=== PATIENT | male | born 1990 | race Caucasian/White ===

== ENCOUNTER 2017-08-04 23:31 | Observation (INO) | payer OTHER ==
[2017-08-05 00:18] LABS: Absolute Lymphocytes (CBC) 2.1 K/uL (0.7-4.9); Absolute Monocytes 0.9 K/uL (0.1-1.3); Absolute Neutrophil 9.8 K/uL (1.8-8.0); Basophils % 0.7 % (0-1.3); Eosinophils % 1.3 % (0-4.4); Hematocrit 42.5 % (39.6-49.0); Lymphocytes % 15.8 % (15.3-44.8); MCH 28.6 pg (27.0-35.0); MCV 85.2 fL (80-100); MPV 8.4 fL (7.6-11.3); Monocytes % 7.2 % (3.3-12.3); RBC Red Blood Cell Count 4.99 M/uL (4.33-5.43)
[2017-08-05 00:32] LABS: Glomerular Filtration Rate > 60 mL/min (>60)
[2017-08-05] MEDS ORDERED: MORPHINE 4 MG/ML SYR ONE ×2 (00:32→03:32)
[2017-08-05] MEDS ORDERED: ONDANSETRON 4 MG/2 ML VIAL ONE (00:32)
[2017-08-05] MEDS ORDERED: NA CHLORIDE 0.9% 1,000 ML ONE (00:32)
[2017-08-05 00:33] LABS: Potassium 3.8 mEq/L (3.6-5.0)
[2017-08-05 00:39] LABS: Albumin 4.8 g/dL (3.2-5.5); Bilirubin Direct 0.1 mg/dL (0-0.2); Bilirubin Total 0.6 mg/dL (0.3-1.2); Protein, Total 8.1 g/dL (6.0-8.3)
[2017-08-05 02:10] LABS: Urine Bacteria <20 /HPF (NONE SEEN); Urine Culture Reflex Order NOT NEEDED; Urine RBC <5 /HPF (NONE SEEN)
[2017-08-05 02:23] LABS: Urine Blood TRACE (NEG); Urine Glucose NEGATIVE (NEG); Urine Protein 1+ (NEG); Urine Specific Gravity 1.015 (1.005-1.030)
--- NOTE | 2017-08-05 03:27 | EDPHYS ---
Physician Documentation [facility] Name: Curtis Urrutia Age: 26 yrs Sex: Male : 1990 Arrival Date: 08/04/2017 Time: 23:35 Bed 26 Private MD: Matty Brewer H ED Physician Oscar Almeida HPI: 08/05 03:05 This 26 yrs old Male presents to ER via Ambulatory with complaints of pm1 Abdominal Pain, Left Flank Pain. 03:05 The patient presents with abdominal pain in the left upper quadrant, left flank pain. pm1 Onset: The symptoms/episode began/occurred yesterday, at 13:00. The symptoms do not radiate. Associated signs and symptoms: Pertinent negatives: nausea, vomiting, and diarrhea, chest pain, dysuria, fever, shortness of breath, testicular pain. The symptoms are described as constant, sharp. Modifying factors: The symptoms are alleviated by nothing, the symptoms are aggravated by nothing. Severity of pain: in the emergency department the pain is actually worse. The patient has not experienced similar symptoms in the past. The patient has not recently seen a physician, Flaco Cosme MD is his director field services . Historical: - Allergies: 08/04 23:55 Sulfa (Sulfonamide Antibiotics); ao - Home Meds: 23:55 Lisinopril Oral [Active]; clonidine HCl Oral [Active]; ao 08/05 03:20 amlodipine oral [Active]; ao - PMHx: 08/04 23:55 Kidney disease; ao 23:57 Hypertension; ao - PSHx: 23:55 None; ao - Immunization history:: Adult Immunizations up to date. - Social history:: Smoking status: Patient/guardian denies using tobacco, Patient/guardian denies using alcohol, street drugs. ROS: 08/05 03:05 Constitutional: Negative for fever, chills, and weight loss, Eyes: Negative for injury, pm1 pain, redness, and discharge, ENT: Negative for injury, pain, and discharge, Neck: Negative for injury, pain, and swelling, Cardiovascular: Negative for chest pain, palpitations, and edema, Respiratory: Negative for shortness of breath, cough, wheezing, and pleuritic chest pain. : Negative for injury, bleeding, discharge, and swelling, MS/Extremity: Negative for injury and deformity, Skin: Negative for injury, rash, and discoloration, Neuro: Negative for headache, weakness, numbness, tingling, and seizure. Abdomen/GI: Positive for abdominal pain, of the left upper quadrant, Negative for nausea, vomiting, and diarrhea. Back: Positive for flank pain, on the left. Exam: 03:05 Constitutional: This is a well developed, well nourished patient who is awake, alert, pm1 and in no acute distress. Head/Face: Normocephalic, atraumatic. Eyes: Pupils equal round and reactive to light, extra-ocular motions intact. Lids and lashes normal. Conjunctiva and sclera are non-icteric and not injected. Cornea within normal limits. Periorbital areas with no swelling, redness, or edema. ENT: Nares patent. No nasal discharge, no septal abnormalities noted. Tympanic membranes are normal and external auditory canals are clear. Oropharynx with no redness, swelling, or masses, exudates, or evidence of obstruction, uvula midline. Mucous membranes moist. Neck: Trachea midline, no thyromegaly or masses palpated, and no cervical lymphadenopathy. Supple, full range of motion without nuchal rigidity, or vertebral point tenderness. No Meningismus. Chest/axilla: Normal chest wall appearance and motion. Nontender with no deformity. No lesions are appreciated. Cardiovascular: Regular rate and rhythm with a normal S1 and S2. No gallops, murmurs, or rubs. Normal PMI, no JVD. No pulse deficits. Respiratory: Lungs have equal breath sounds bilaterally, clear to auscultation and percussion. No rales, rhonchi or wheezes noted. No increased work of breathing, no retractions or nasal flaring. 03:05 Abdomen/GI: Inspection: abdomen appears normal, Bowel sounds: normal, Palpation: soft, in the left upper quadrant. Vital Signs: 08/04 23:55 BP 150 / 104; Pulse 76; Resp 16; Temp 98.9(O); Pulse Ox 99% on R/A; Weight 90.72 kg; ao Height 5 ft. 9 in. (175.26 cm); Pain 10/10; 08/05 00:30 BP 144 / 94; Pulse 66; Resp 16; Pulse Ox 99% on R/A; lk1 01:00 BP 155 / 107; Pulse 83; Resp 16; Pulse Ox 99% on R/A; lk1 02:00 BP 160 / 92; Pulse 89; Resp 15; Pulse Ox 99% on R/A; lk1 03:05 BP 175 / 106; Pulse 78; Resp 16; Temp 98.9(O); Pulse Ox 98% on R/A; Pain 8/10; ao 04:10 BP 167 / 109; Pulse 86; Resp 16; Pulse Ox 100% on R/A; Pain 0/10; lk1 05:10 BP 159 / 105; Pulse 74; Resp 16; Pulse Ox 98% on R/A; ao 08/04 23:55 Body Mass Index 29.53 (90.72 kg, 175.26 cm) ao MDM: 08/04 23:58 Patient medically screened. pm1 08/05 03:15 Physician consultation: Brake Lining Maker Marguerite was contacted at 03:10, regarding pm1 patient's condition, Recommends observation for serial H\T\H, able to tolerate PO fluids, and pain management. Patient does not require transfer to another facility. Dr. Cosme or himself will call the patient tomorrow see how he is doing. 03:20 Data reviewed: vital signs. Data interpreted: Pulse oximetry: on room air is 99 %. pm1 Interpretation: normal. Counseling: I had a detailed discussion with the patient and/or guardian regarding: the historical points, exam findings, and any diagnostic results supporting the discharge/admit diagnosis, lab results, radiology results, the need for further work-up and treatment in the hospital. 03:24 Physician consultation: Jessica Medellin MD was called at 03:24, was contacted at 03:24, pm1 regarding admission, patient's condition, and will see patient. 08/04 23:59 Order name: Creatinine for Radiology pm1 08/04 23:59 Order name: Basic Metabolic Panel; Complete Time: 01:01 pm1 08/04 23:59 Order name: CBC with Diff; Complete Time: 01:01 pm1 08/04 23:59 Order name: Hepatic Function; Complete Time: 01:01 pm1 08/04 23:59 Order name: Lipase; Complete Time: 01:01 pm1 08/04 23:59 Order name: Urine Microscopic Only; Complete Time: 02:48 pm1 08/04 23:59 Order name: IV Saline Lock; Complete Time: 00:36 pm1 08/04 23:59 Order name: Creatinine (Radiology Only); Complete Time: 01:01 EDRI 08/05 00:06 Order name: CT Abd/Pelvis - W/Contrast: IV contrast only pm1 08/05 02:08 Order name: Urine Dipstick--Ancillary (enter results); Complete Time: 02:48 em1 08/04 23:59 Order name: Labs collected and sent; Complete Time: 00:36 pm1 08/04 23:59 Order name: Urine Dipstick-Ancillary (obtain specimen); Complete Time: 02:02 pm1 Administered Medications: 00:23 Drug: Zofran 4 mg Route: IVP; Site: right antecubital; kr2 00:44 Follow up: Response: No adverse reaction; Nausea is decreased kr2 00:23 Drug: NS 0.9% 1000 ml Route: IV; Rate: 1000 ml; Site: right antecubital; kr2 05:14 Follow up: IV Status: Completed infusion ao 00:24 Drug: morphine 4 mg Route: IVP; Site: right antecubital; kr2 00:44 Follow up: Response: No adverse reaction; Pain is decreased kr2 03:19 Drug: morphine 4 mg Route: IVP; Site: right antecubital; ao 05:14 Follow up: Response: No adverse reaction ao Disposition: 06:35 Co-signature as Attending Physician, Oscar Almeida MD. rn Disposition: 08/05/17 03:26 Hospitalization ordered by Jessica Medellin for Observation. Preliminary diagnosis is Polycystic kidney, unspecified - intracystic hemorrhage of left kidney. - Bed requested for Telemetry/MedSurg (observation). - Status is Observation. ao - Condition is Stable. - Problem is new. - Symptoms have improved. UTI on Admission? No Signatures: Dispatcher [employer] EDRI Barbara Hoyos RN RN kl Nieto, Roman, MD MD rn Ortiz, Alex, RN RN ao Marinas, Patrick, AWS SOLUTION ARCHITECT AWS SOLUTION ARCHITECT pm1 Nataliya Maria RN RN kr2
--- NOTE | 2017-08-05 03:27 | ER ---
Nurse's Notes [facility] Name: Curtis Urrutia Age: 26 yrs Sex: Male : 1990 Arrival Date: 08/04/2017 Time: 23:35 Bed 26 Private MD: Matty Brewer H Diagnosis: Polycystic kidney, unspecified-intracystic hemorrhage of left kidney Presentation: 08/04 23:50 Presenting complaint: Patient states: "I have severe pain in my left side of my abdomen ao that started about 0100." Patient denies vomiting, fever. Transition of care: patient was not received from another setting of care. Onset of symptoms was August 04, 2017 at 01:00. Care prior to arrival: None. 23:50 Method Of Arrival: Ambulatory ao 23:50 Acuity: PARTH 3 ao Triage Assessment: 08/05 00:36 General: Appears in no apparent distress. uncomfortable, well groomed, well developed, kr2 well nourished, Behavior is calm, cooperative, appropriate for age. Pain: Complains of pain in left upper quadrant Pain does not radiate. Pain currently is 7 out of 10 on a pain scale. Quality of pain is described as crampy, sharp, stabbing, Pain began suddenly, Is continuous, Alleviated by nothing. Historical: - Allergies: 08/04 23:55 Sulfa (Sulfonamide Antibiotics); ao - Home Meds: 23:55 Lisinopril Oral [Active]; clonidine HCl Oral [Active]; ao 08/05 03:20 amlodipine oral [Active]; ao - PMHx: 08/04 23:55 Kidney disease; ao 23:57 Hypertension; ao - PSHx: 23:55 None; ao - Immunization history:: Adult Immunizations up to date. - Social history:: Smoking status: Patient/guardian denies using tobacco, Patient/guardian denies using alcohol, street drugs. Screenin/04 00:36 Abuse screen: Denies threats or abuse. Denies injuries from another. Nutritional kr2 screening: No deficits noted. Tuberculosis screening: No symptoms or risk factors identified. Fall Risk IV access (20 points). Assessment: 00:38 GI: Bowel sounds present X 4 quads. Abd is soft X 4 quads Abdomen is tender to kr2 palpation in left upper quadrant. 03:05 General: Appears in no apparent distress. comfortable, Behavior is calm, cooperative, ao appropriate for age. Pain: Complains of pain in abdomen and left upper quadrant Pain does not radiate. Pain currently is 6 out of 10 on a pain scale. 03:05 Neuro: Level of Consciousness is awake, alert, obeys commands, Oriented to person, ao place, time, situation, Appropriate for age Moves all extremities. Full function Speech is normal, Facial symmetry appears normal. Cardiovascular: Heart tones S1 S2 Capillary refill < 3 seconds Patient's skin is warm and dry. Respiratory: Airway is patent Respiratory effort is even, unlabored, Respiratory pattern is regular, symmetrical, Breath sounds are clear bilaterally. GI: Abdomen is non-distended, Bowel sounds present X 4 quads. Reports nausea. : No signs and/or symptoms were reported regarding the genitourinary system. EENT: No signs and/or symptoms were reported regarding the EENT system. Derm: No signs and/or symptoms reported regarding the dermatologic system. Musculoskeletal: No signs and/or symptoms reported regarding the musculoskeletal system. 04:10 Reassessment: Patient appears in no apparent distress at this time. Patient and/or lk1 family updated on plan of care and expected duration. Pain level reassessed. Patient is alert, oriented x 3, equal unlabored respirations, skin warm/dry/pink. Patient to be hospitalize. Patient is aware of admission and agree with the POC. Waiting on room assignment. 05:08 Reassessment: Report called to JOHN Vance. Patient to be taken to his room. [facility] [place] Vital Signs: 08/04 23:55 BP 150 / 104; Pulse 76; Resp 16; Temp 98.9(O); Pulse Ox 99% on R/A; Weight 90.72 kg; ao Height 5 ft. 9 in. (175.26 cm); Pain 02/10; 08/05 00:30 BP 144 / 94; Pulse 66; Resp 16; Pulse Ox 99% on R/A; lk1 01:00 BP 155 / 107; Pulse 83; Resp 16; Pulse Ox 99% on R/A; lk1 02:00 BP 160 / 92; Pulse 89; Resp 15; Pulse Ox 99% on R/A; lk1 03:05 BP 175 / 106; Pulse 78; Resp 16; Temp 98.9(O); Pulse Ox 98% on R/A; Pain 8/10; ao 04:10 BP 167 / 109; Pulse 86; Resp 16; Pulse Ox 100% on R/A; Pain 0/10; lk1 05:10 BP 159 / 105; Pulse 74; Resp 16; Pulse Ox 98% on R/A; ao 08/04 23:55 Body Mass Index 29.53 (90.72 kg, 175.26 cm) ao ED Course: 08/04 23:35 Patient arrived in ED. es 23:35 Matty Brewer DO is Private Physician. es 23:52 Triage completed. ao 23:57 Arm band placed on right wrist. Patient placed in an exam room, on a stretcher, on ao pulse oximetry, Patient notified of wait time. 23:58 Nikolai Chance NP is PHCP. pm1 23:58 Oscar Almeida MD is Attending Physician. pm1 08/05 00:10 Nataliya Maria RN is Primary Nurse. kr2 00:10 Inserted saline lock: 20 gauge in right antecubital area, using aseptic technique. kr2 Blood collected. 00:38 Patient has correct armband on for positive identification. Bed in low position. Call kr2 light in reach. Side rails up X2. Pulse ox on. NIBP on. Door closed. Warm blanket given. Head of bed elevated. 01:[address] via wheelchair. eh 01:20 CT completed. Patient tolerated procedure well. Patient moved back from CT. eh 01:20 CT Abd/Pelvis - W/Contrast: IV contrast only In Process Unspecified. EDMS 03:10 Report received from JOHN Bhatt. ao 03:25 Jessica Medellin MD is Hospitalizing Provider. pm1 05:06 No provider procedures requiring assistance completed. Patient admitted, IV remains in lk1 place. Administered Medications: 00:23 Drug: Zofran 4 mg Route: IVP; Site: right antecubital; kr2 00:44 Follow up: Response: No adverse reaction; Nausea is decreased kr2 00:23 Drug: NS 0.9% 1000 ml Route: IV; Rate: 1000 ml; Site: right antecubital; kr2 05:14 Follow up: IV Status: Completed infusion ao 00:24 Drug: morphine 4 mg Route: IVP; Site: right antecubital; kr2 00:44 Follow up: Response: No adverse reaction; Pain is decreased kr2 03:19 Drug: morphine 4 mg Route: IVP; Site: right antecubital; ao 05:14 Follow up: Response: No adverse reaction ao Outcome: 03:26 Decision to Hospitalize by Provider. pm1 05:06 Admitted to Med/surg accompanied by nurse, room 211, with chart, Report called to diane Vance RN 05:06 Condition: stable 05:06 Instructed on the need for admit. 05:13 Patient left the ED. ao Signatures: Dispatcher [employer] EDAmira Nayak Ervin eh Kluge, Leah, RN RN lk1 Rei Villegas RN RN Nikolai Donahue, ANNY CONTROL SYSTEMS ENGINEER pm1 Nataliya Maria RN RN kr2
--- NOTE | 2017-08-05 04:30 | P.HP ---
Certification for Inpatient Patient admitted to: Observation With expected LOS: <2 Midnights Practitioner: I am a practitioner with admitting privileges, knowledge of patient current condition, hospital course, and medical plan of care. Services: Services provided to patient in accordance with Admission requirements found in Title 42 Section 412.3 of the Code of Federal Regulations Patient History Date of Service: 08/05/17 Reason for admission: hemorrhagic cyst History of Present Illness: Mr Urrutia is a 26 years old male with history of HTN, and polycystic kidney disease, who start around 1300 yesterday with severe left flank and left lower quadrant. The pain was constant and progressively getting worse. He denied any fever, chills or diaphoresis episode. Work up in ER shows leukocytosis 13K, CT abdomen and pelvis remarkable for kidney stones, obstructive, on the upper pole of the left kidney there is a possible hemorrhagic cyst vs a mass. Hgb is 13 mg /dl. Allergies Sulfa (Sulfonamide Antibiotics) Allergy (Verified 08/05/17 04:28) Itching/Hives/Rash - Past Medical/Surgical History -: polycystic kidney disease -: HTN Past Surgical History: Reviewed- Non-Contributory - Family History Family History: Reviewed- Non-Contributory - Social History Smoking Status: Never smoker Alcohol use: No CD- Drugs: No Caffeine use: Yes Place of Residence: Home Review of Systems 10-point ROS is otherwise unremarkable Physical Examination - Physical Exam General: Alert, In no apparent distress HEENT: Atraumatic, PERRLA, Mucous membr. moist/pink, EOMI, Sclerae nonicteric Neck: Supple, 2+ carotid pulse no bruit, No LAD, Without JVD or thyroid abnormality Respiratory: Clear to auscultation bilaterally, Normal air movement Cardiovascular: Regular rate/rhythm, Normal S1 S2 Gastrointestinal: Normal bowel sounds, Tenderness (tender to palpation on LLQ and left flank) Musculoskeletal: No tenderness Integumentary: No rashes Neurological: Normal speech, Normal strength at 5/5 x4 extr, Normal tone, Normal affect Lymphatics: No axilla or inguinal lymphadenopathy - Studies Laboratory Data (last 24 hrs) 08/04/17 23:59: WBC 13.0 H, Hgb 14.3, Hct 42.5, Plt Count 282 08/04/17 23:59: Sodium 139, Potassium 3.8, BUN 22 H, Creatinine 1.18, Glucose 134 H, Total Bilirubin 0.6, AST 20, ALT 28, Alkaline Phosphatase 55, Lipase 26 08/04/17 23:59: Creatinine 1.24 Assessment and Plan - Problems (Diagnosis) (1) Polycystic kidney disease Current Visit: Yes Status: Acute (2) Hemorrhagic cyst Current Visit: Yes Status: Acute (3) HTN (hypertension) Current Visit: Yes Status: Acute Qualifiers: Hypertension type: renovascular hypertension Qualified Code(s): I15.0 - Renovascular hypertension - Plan The patient will be admitted to the hospital due to possible hemorrhagic cyst. Nikolai Chance has discussed the case with Aydin Christy MD his fire official, who has recommended to admit the patient under observation, check HH, and give pain medication. Will consult our Nephrology team and also Urologist for recommendations. - Advance Directives Does patient have a Living Will: No Does patient have a Durable POA for Healthcare: No - Code Status/Comfort Care Code Status Assessed: Yes Code Status: Full Code
[2017-08-05] MEDS ORDERED: MORPHINE 2 MG/ML SYR IV PRN (05:30)
[2017-08-05] MEDS ORDERED: ZOLPIDEM TARTRATE 5 MG TABLET PO PRN (05:30)
[2017-08-05] MEDS ORDERED: NA CHLORIDE 0.9% 1,000 ML IV SCH (05:30)
[2017-08-05] MEDS ORDERED: ACETAMINOPHEN 500 MG TAB PO PRN (05:30)
[2017-08-05 05:37] VITALS: O2SAT 99; BMI 31.6
[2017-08-05] MEDS ORDERED: POTASSIUM 25 MEQ EFFERV TAB PO ONE (06:26)
[2017-08-05 06:28] LABS: Hematocrit 40.9 % (39.6-49.0)
[2017-08-05] MEDS ORDERED: HYDROCODONE/APAP 7.5/325 MG TAB PO PRN (07:36)
[2017-08-05] MEDS ORDERED: TRAMADOL HCL 50 MG TAB PO PRN (07:36)
--- NOTE | 2017-08-05 08:32 | P.CNS ---
Date of Consult: 08/05/17 Reason for Consult: Hemorrhagic renal cyst Requesting Physician: Shorty Goldsmith Chief Complaint: hemorrhagic cyst History of Present Illness: Mr Urrutia is a 26 years old male with history of HTN, and polycystic kidney disease, who start around 1300 yesterday with severe left flank and left lower quadrant. The pain was constant and progressively getting worse. He denied any fever, chills or diaphoresis episode. Work up in ER shows leukocytosis 13K, CT abdomen and pelvis remarkable for kidney stones, obstructive, on the upper pole of the left kidney there is a possible hemorrhagic cyst vs a mass. Hgb is 13 mg /dl. 03:05 This 26 yrs old Male presents to ER via Ambulatory with complaints of pm1 Abdominal Pain, Left Flank Pain. 03:05 The patient presents with abdominal pain in the left upper quadrant, left flank pain. pm1 Onset: The symptoms/episode began/occurred yesterday, at 13:00. The symptoms do not radiate. Associated signs and symptoms: Pertinent negatives: nausea, vomiting, and diarrhea, chest pain, dysuria, fever, shortness of breath, testicular pain. The symptoms are described as constant, sharp. Modifying factors: The symptoms are alleviated by nothing, the symptoms are aggravated by nothing. Severity of pain: in the emergency department the pain is actually worse. The patient has not experienced similar symptoms in the past. The patient has not recently seen a physician, Flaco Cosme MD is his care process manager . Allergies Sulfa (Sulfonamide Antibiotics) Allergy (Verified 08/05/17 04:47) Itching/Hives/Rash Home medications list reviewed: Yes Home Medications: Amlodipine Besylate 1 pill PO DAILY 08/05/17 Clonidine 1 patch XX ONCE 08/05/17 Lisinopril 1 pill PO BID 08/05/17 traMADol HCL [Ultram*] 50 mg PO TID PRN #30 tab 08/05/17 - Past Medical/Surgical History Diabetic: No -: polycystic kidney disease -: HTN - Family History Father Notes: No medical history Mother Medical History: Other (see notes) Notes: Polycystic Kidney Disease - Social History Alcohol use: No CD- Drugs: No Caffeine use: No Place of Residence: Home Review of Systems 10-point ROS is otherwise unremarkable Gastrointestinal: Abdominal Pain Physical Examination Temp Pulse Resp BP Pulse Ox 98.9 F 86 16 167/109 H 04/04/18 03:05 08/05/17 04:10 08/05/17 04:10 08/05/17 04:10 General: Alert, In no apparent distress, Oriented x3, Cooperative HEENT: Atraumatic, Normocephalic Neck: Supple Respiratory: Clear to auscultation bilaterally, Normal air movement Cardiovascular: No edema, Regular rate/rhythm Gastrointestinal: Soft and benign, Non-distended, Tenderness Musculoskeletal: No clubbing, No contractures Integumentary: No rashes, No cyanosis Neurological: Normal speech Laboratory Data (last 24 hrs) 08/04/17 23:59: WBC 13.0 H, Hgb 14.3, Hct 42.5, Plt Count 282 08/04/17 23:59: Sodium 139, Potassium 3.8, BUN 22 H, Creatinine 1.18, Glucose 134 H, Total Bilirubin 0.6, AST 20, ALT 28, Alkaline Phosphatase 55, Lipase 26 08/04/17 23:59: Creatinine 1.24 Imagings Data: EXAM DESCRIPTION: CTAbdomen Pelvis W Contrast - 08/05/2017 3:51 am CLINICAL HISTORY: Abdominal pain. COMPARISON: None. TECHNIQUE: Biphasic CT imaging of the abdomen and pelvis was performed with 100 ml non-ionic IV contrast. All CT scans are performed using dose optimization technique as appropriate and may include automated exposure control or mA/KV adjustment according to patient size. FINDINGS: The lung bases are clear. The liver contains tiny cysts. No aggressive liver lesion or intrahepatic biliary dilatation. The spleen, pancreas, adrenal glands are normal. Innumerable renal cysts are present bilaterally. Hyperdense material is seen within several of the left-sided cysts with fluid extending along the anterior left pararenal fascia suspicious for hemorrhage within a cyst. Small bilateral renal calculi are also present. No bowel obstruction, free air, intra-abdominal free fluid or abscess. The appendix is normal. No evidence of significant lymphadenopathy. No suspicious bony findings. IMPRESSION: Polycystic kidney disease is present. Left-sided cysts demonstrate internal increased density particularly superiorly with fluid extending along the left anterior pararenal fascia, likely representing intracystic hemorrhage. Consider a followup MR study to better delineate this finding if clinically warranted. Conclusions/Impression: A/ Left hemorrhagic renal cyst. aPKD. HTN with CKD, controlled. CKD III in the setting of PKD. Proteinuria P/ Continue current POC and Medications. Counseled regarding hemorrhagic cyst in the setting of PKD. Agree with hydration. No NSAIDs. Pain control as needed. AM labs. Daily weight. Thank you kindly for the consultation. Case discussed with Dr. Goldsmith.
--- NOTE | 2017-08-05 08:43 | RAD REPORT ---
EXAM DESCRIPTION: CTAbdomen Pelvis W Contrast - 08/05/2017 3:51 am CLINICAL HISTORY: Abdominal pain. COMPARISON: None. TECHNIQUE: Biphasic CT imaging of the abdomen and pelvis was performed with 100 ml non-ionic IV cont rast. All CT scans are performed using dose optimization technique as appropriate and may include automated exposure control or mA/KV adjustment according to patient size. FINDINGS: The lung bases are clear. The liver contains tiny cysts. No aggressive liver lesion or intrahepatic biliary dilatation. The spl een, pancreas, adrenal glands are normal. Innumerable renal cysts are present bilaterally. Hyperdense material is seen within several of the left-sided cysts with fluid extending along the anterior left pararenal fascia suspicious for hemorrhage within a cyst. Small bilateral renal calculi are also present. No bowel obstruction, free air, intra-abdominal free fluid or abscess. The appendix is normal. No e vidence of significant lymphadenopathy. No suspicious bony findings. IMPRESSION: Polycystic kidney disease is present. Left-sided cysts demonstrate internal increased de nsity particularly superiorly with fluid extending along the left anterior pararenal fascia, likely r epresenting intracystic hemorrhage. Consider a followup MR study to better delineate this finding if clinically warranted.
[2017-08-05] MEDS ORDERED: AMLODIPINE 10 MG TAB PO SCH (09:00)
[2017-08-05] MEDS ORDERED: LISINOPRIL 20 MG TAB PO SCH (09:00)
[2017-08-05] MEDS ORDERED: CLONIDINE 0.1 MG/PATCH TD SCH (09:00)
[2017-08-05] MEDS ORDERED: MORPHINE 4 MG/ML SYR IV PRN (09:29)
--- NOTE | 2017-08-05 09:33 | P.DS ---
Admission Date: 08/05/17 Discharge Date: 08/05/17 Primary Care Provider: Dr. Brewer; Nephrology-[facility] Disposition: ROUTINE DISCHARGE Discharge Condition: GOOD Reason for Admission: hemorrhagic cyst Consultations: Nephrology-Dr. Bashir Procedures: CT scan: FINDINGS: The lung bases are clear. The liver contains tiny cysts. No aggressive liver lesion or intrahepatic biliary dilatation. The spleen, pancreas, adrenal glands are normal. Innumerable renal cysts are present bilaterally. Hyperdense material is seen within several of the left-sided cysts with fluid extending along the anterior left pararenal fascia suspicious for hemorrhage within a cyst. Small bilateral renal calculi are also present. No bowel obstruction, free air, intra-abdominal free fluid or abscess. The appendix is normal. No evidence of significant lymphadenopathy. No suspicious bony findings. IMPRESSION: Polycystic kidney disease is present. Left-sided cysts demonstrate internal increased density particularly superiorly with fluid extending along the left anterior pararenal fascia, likely representing intracystic hemorrhage. Consider a followup MR study to better delineate this finding if clinically warranted. - Problems (1) HTN (hypertension) Current Visit: Yes Status: Chronic Qualifiers: Hypertension type: renovascular hypertension Qualified Code(s): I15.0 - Renovascular hypertension (2) Hemorrhagic cyst Current Visit: Yes Status: Acute (3) Polycystic kidney disease Current Visit: Yes Status: Chronic (4) Obesity Current Visit: Yes Status: Chronic Qualifiers: Obesity type: due to excess calories Obesity classification: adult class 1 (BMI 30 - 34.9) Serious obesity comorbidity presence: with serious comorbidity Body mass index: BMI 31.0-31.9 Qualified Code(s): E66.09 - Other obesity due to excess calories; Z68.31 - Body mass index (BMI) 31.0-31.9, adult; Z68.31 - Body mass index (BMI) 31.0-31.9, adult Brief History of Present Illness: 26 yo HM with Polyscytic renal disease and HTN. He presented to ER with Left flank pain. He was found to have hemorrhagic cyst to the left side. He was admitted and monitored. Hospital Course: Overnight the patient improved. CT scan showed hemorrhagic cyst on the left side. Patient has a history of polycystic renal disease and hypertension. Hemoglobin remained stable. Patient was evaluated by nephrology. No intervention was needed. At discharge patient was without any significant flank pain. Patient will continue with medication-tramadol 50 mg 1 pill 3 times a day as needed for pain. Recommendations is to recheck CBC and BMP in 1 week to monitor his progress. Patient will follow up with nephrology to further evaluate. Patient has hypertension. Patient will continue with his regular regimen. Recommendation is to maintain blood pressures less 150/80. Further adjustment can be done by his PCP. Patient has obesity. Lifestyle modification education will be provided Vital Signs/Physical Exam: Temp Pulse Resp BP Pulse Ox 98.9 F 89 16 150/87 H 08/05/17 03:05 08/05/17 08:56 08/05/17 04:10 08/05/17 08:56 General: Alert, In no apparent distress, Oriented x3, Cooperative HEENT: Atraumatic Neck: Supple, No Thyromegaly Respiratory: Clear to auscultation bilaterally, Normal air movement Cardiovascular: Normal pulses, Regular rate/rhythm Gastrointestinal: Normal bowel sounds, Soft and benign, Non-distended, No tenderness, No masses, No rebound, No guarding Musculoskeletal: No erythema, No tenderness, No warmth Integumentary: No erythema, No warmth, No cyanosis Neurological: Normal speech, Normal strength at 5/5 x4 extr, Normal tone, Normal affect Lymphatics: No axilla or inguinal lymphadenopathy Laboratory Data at Discharge: WBC 13.0 K/uL (4.3-10.9) H 08/04/17 23:59 Hgb 14.0 g/dL (13.6-17.9) 08/05/17 05:54 Hct 40.9 % (39.6-49.0) 08/05/17 05:54 Plt Count 282 K/uL (152-406) 08/04/17 23:59 Sodium 139 mEq/L (135-145) 08/04/17 23:59 Potassium 3.8 mEq/L (3.6-5.0) 08/04/17 23:59 BUN 22 mg/dL (6-20) H 08/04/17 23:59 Creatinine 1.18 mg/dL (0.61-1.24) 08/04/17 23:59 Glucose 134 mg/dL (65-120) H 08/04/17 23:59 Total Bilirubin 0.6 mg/dL (0.3-1.2) 08/04/17 23:59 AST 20 IU/L (10-42) 08/04/17 23:59 ALT 28 IU/L (10-60) 08/04/17 23:59 Alkaline Phosphatase 55 IU/L (42-121) 08/04/17 23:59 Lipase 26 U/L (22-51) 08/04/17 23:59 Home Medications: Amlodipine Besylate 1 pill PO DAILY 08/05/17 Clonidine 1 patch XX ONCE 08/05/17 Lisinopril 1 pill PO BID 08/05/17 traMADol HCL [Ultram*] 50 mg PO TID PRN #30 tab 08/05/17 New Medications: traMADol HCL [Ultram*] 50 mg PO TID PRN #30 tab PRN Reason: Pain Mild Patient Discharge Instructions: 1. Patient will need to follow up with his PCP in one week. 2. Patient presented with Left flank pain. He was found to have a hemorrhagic cyst to the left side. He has Polycystic Renal Disease and HTN. Pain has improved. Will provide medication-Tramadol 50 mg one pill three times a day as needed pain. Patient will follow up with his cardiopulmonary technologist chief in 1-2 weeks to follow up this hospitalization. 3. Patient has hypertension. Patient will continue with his regular regimen. Recommendation is to maintain blood pressures less 150/80. Further adjustment can be done by his PCP. 4. Recommendation is to recheck lab-BMP, CBC in 1-2 weeks to monitor his progress. 5. Lifestyle modification education will be provided. Diet: Renal Activity: Ad stacie Time spent managing pt's care (in minutes): 55
[2017-08-05 12:40] VITALS: BP 145/81; TEMP 98.6
== END 2017-08-05 12:25 | disposition home or self-care (01) ==
LOC: ER 23:31 → ERHOLD 08-05 04:30 → 2ND 08-05 04:53
PROVIDERS: ADMIT Internal Medicine; ATTEND Internal Medicine
DX: Q61.3 Polycystic kidney, unspecified (principal); I12.9 Hypertensive chronic kidney disease with stage 1 through stage 4 chronic kidney disease, or unspecified chronic kidney disease; N18.3 Chronic kidney disease, stage 3 (moderate); R80.9 Proteinuria, unspecified; Z88.2 Allergy status to sulfonamides; E66.9 Obesity, unspecified; Z68.31 Body mass index [BMI] 31.0-31.9, adult
CPT/HCPCS: 36415; 74177; 80048; 80076; 81003; 81015; 83690; 85014; 85018; 85025; 96361; 96374; 96375; 99285; G0378; J2405; J7030; Q9967

== ENCOUNTER 2018-03-12 10:08 | Observation (INO) | payer OTHER ==
[2018-03-12] MEDS ORDERED: ONDANSETRON 4 MG/2 ML VIAL ONE (11:09)
[2018-03-12] MEDS ORDERED: FENTANYL CITR 100 MCG/2 ML ONE ×2 (11:09→13:39)
[2018-03-12 11:15] LABS: Absolute Lymphocytes (CBC) 1.7 K/uL (0.7-4.9); Absolute Neutrophil 9.2 K/uL (1.8-8.0); Basophils % 0.4 % (0-1.3); Eosinophils % 2.2 % (0-4.4); Hematocrit 42.7 % (39.6-49.0); Lymphocytes % 13.9 % (15.3-44.8); MCH 29.7 pg (27.0-35.0); MCV 86.8 fL (80-100); MPV 8.4 fL (7.6-11.3); Monocytes % 8.4 % (3.3-12.3); RBC Red Blood Cell Count 4.92 M/uL (4.33-5.43)
[2018-03-12 11:31] LABS: Albumin 4.1 g/dL (3.4-5.0); Bilirubin Direct 0.1 mg/dL (0-0.2); Bilirubin Total 0.5 mg/dL (0.2-1.0); Protein, Total 8.2 g/dL (6.4-8.2)
--- NOTE | 2018-03-12 12:09 | RAD REPORT ---
EXAM DESCRIPTION: CT - Abdomen Pelvis W Contrast - 03/12/2018 11:51 am CLINICAL HISTORY: Left lower quadrant pain, patient details pain similar to pain associated with rup tured left renal cyst back in August COMPARISON: CT study August 2017 TECHNIQUE: Biphasic, helical CT imaging of the abdomen and pelvis was performed following 100 ml non -ionic IV contrast. No oral contrast administered. All CT scans are performed using dose optimization technique as appropriate and may include automated exposure control or mA/KV adjustment according to patient size. FINDINGS: No suspicious findings in the lung bases. The liver, spleen, and pancreas show no suspicious findings. Gallbladder and biliary tree are also wi thout suspicious finding. Patient has polycystic kidney disease with innumerable variably sized cysts throughout both kidneys. Left kidney is enlarged relative to the right. A few nonobstructing calculi seen on the left. There i s no right-sided hydronephrosis or obstructing calculus on the right. There is a minimal dilatation o f the left collecting system. Patient has a 2- 3 millimeter calcification at the bladder wall UVJ geno ction. This is favored to be the source of the patient's left-sided pain. Several of the left-sided renal cyst show hyperdensity indicating high protein content or hemorrhagic material. The prior study showed evidence for an acute cyst hemorrhage and rupture. A confined cyst hemorrhage and high protein content cyst can have a similar appearance. No convincing evidence for an acute cyst hemorrhage and there is no capsule disruption of any of the hyperdense cysts. No perineph allen stranding or fluid in the pericolic gutter. No urinary bladder abnormality. Prostate gland and se sharon vesicles are normal range. No dilated bowel loops or bowel wall thickening. No free air, free fluid or inflammatory stranding. No hernia, mass or bulky lymphadenopathy. No adrenal abnormality. No suspicious bony findings. IMPRESSION: Mild dilatation of the left renal collecting system secondary to a 2-3 mm left UVJ calcu reji. Patient has additional nonobstructing small caliceal calcifications on the left. Polycystic kidney disease again noted. There are many of the left-sided cysts showing hyperdensity in dicating hemorrhagic material or high protein content. No convincing evidence for an acute hemorrhage within a cyst. There is no cyst rupture or leakage.
--- NOTE | 2018-03-12 12:27 | ER ---
Nurse's Notes [facility] Name: Curtis Urrutia Age: 27 yrs Sex: Male : 1990 Arrival Date: 03/12/2018 Time: 10:11 Bed 5 Private MD: Matty Brewer H Diagnosis: Hydronephrosis with renal and ureteral calculous obstruction;Fever presenting with conditions classified elsewhere;Elevated white blood cell count Presentation: 03/12 10:31 Presenting complaint: Patient states: LLQ abdominal pain since 0130 this AM. Patient aj reports pain is similar to episode of a ruptured cyst on kidney in August. Transition of care: patient was not received from another setting of care. Onset of symptoms was March 12, 2018. Risk Assessment: Do you want to hurt yourself or someone else? Patient reports no desire to harm self or others. Initial Sepsis Screen: Does the patient meet any 2 criteria? No. Patient's initial sepsis screen is negative. Does the patient have a suspected source of infection? No. Patient's initial sepsis screen is negative. Care prior to arrival: None. 10:31 Method Of Arrival: Ambulatory 10:31 Acuity: PARTH 2 aj Triage Assessment: 10:33 General: Appears uncomfortable, Behavior is calm, cooperative, appropriate for age. aj Pain: Complains of pain in left lower quadrant. Neuro: Level of Consciousness is awake, alert, obeys commands, Oriented to person, place, time, situation, Appropriate for age. Respiratory: Airway is patent Respiratory effort is even, unlabored, Respiratory pattern is regular, symmetrical. GI: Reports lower abdominal pain. Derm: Skin is intact, is healthy with good turgor, Skin is pink, warm \\T\\ dry. normal. Historical: - Allergies: 10:33 Sulfa (Sulfonamide Antibiotics); aj - Home Meds: 10:33 amlodipine oral [Active]; clonidine HCl Oral [Active]; lisinopril Oral [Active]; aj Tramadol Oral [Active]; - PMHx: 10:33 Hypertension; kidney disease; aj - PSHx: 10:33 None; aj - Immunization history:: Adult Immunizations up to date. - Social history:: Smoking status: Patient/guardian denies using tobacco. - Ebola Screening: : Patient negative for fever greater than or equal to 101.5 degrees Fahrenheit, and additional compatible Ebola Virus Disease symptoms Patient denies exposure to infectious person Patient denies travel to an Ebola-affected area in the 21 days before illness onset No symptoms or risks identified at this time. Screenin:47 Abuse screen: Denies threats or abuse. Denies injuries from another. Nutritional ss screening: No deficits noted. Tuberculosis screening: Never had TB. Fall Risk None identified. Assessment: 10:47 General: Appears in no apparent distress. comfortable, Behavior is calm, cooperative, ss Denies fever, feeling ill, fatigue, chills. General: "It feels exactly like it has before when my other cyst on my kidney ruptured.". Pain: Complains of pain in left lower quadrant Pain currently is 5 out of 10 on a pain scale. at worst was 8 out of 10 on a pain scale. Quality of pain is described as sharp, Pain began 0130 this morning Is continuous, Aggravated by palpation, increased activity. Neuro: Level of Consciousness is awake, alert, obeys commands, Oriented to person, place, time, situation, Facial symmetry appears normal, Pupils are PERRLA. Cardiovascular: Capillary refill < 3 seconds is brisk in bilateral fingers. Respiratory: Airway is patent Respiratory effort is even, unlabored, Respiratory pattern is regular, symmetrical, Breath sounds are clear bilaterally. Denies cough. GI: Abdomen is non-distended, Bowel sounds present X 4 quads. Abd is soft X 4 quads Abdomen is tender to palpation in left lower quadrant Reports mild nausea after self administering a prescribed tramadol. : Reports mild burning with urination since pain began Denies discharge, inability to void. EENT: Oral mucosa is moist. Throat is clear. Derm: Skin is pink, warm \\T\\ dry. normal. Musculoskeletal: Circulation, motion, and sensation intact. Range of motion: intact in all extremities, Swelling absent. 12:25 Reassessment: Patient appears in no apparent distress at this time. and sg at bedside evaluating pt at this time, will continue to monitor. Vital Signs: 10:33 BP 158 / 100; Pulse 91; Resp 20; Temp 99.1; Pulse Ox 99% on R/A; Weight 95.25 kg; aj Height 5 ft. 9 in. (175.26 cm); 12:30 BP 142 / 82; Pulse 89; Resp 17; Temp 99.1; Pulse Ox 100% on R/A; Pain 4/10; sg 10:33 Body Mass Index 31.01 (95.25 kg, 175.26 cm) aj ED Course: 10:11 Patient arrived in ED. rg4 10:11 Matty Brewer DO is Private Physician. rg4 10:32 Triage completed. aj 10:33 Arm band placed on left wrist. Patient placed in an exam room. aj 10:35 Jose Hernandez PA is PHCP. jr8 10:35 Levi Hdez MD is Attending Physician. jr8 10:41 Inserted saline lock: 20 gauge in right antecubital area, using aseptic technique. ss Blood collected. 10:47 Patient has correct armband on for positive identification. Bed in low position. Call ss light in reach. Side rails up X 1. Pulse ox on. NIBP on. 10:58 Cole Luis, RN is Primary Nurse. sg 11:00 No provider procedures requiring assistance completed. sg 11:50 CT Abd/Pelvis - W/Contrast In Process Unspecified. EDMS 12:25 Amanda Sevilla MD is Hospitalizing Provider. jr8 12:45 Patient admitted, IV remains in place. intact, No redness/swelling at site. sg Administered Medications: 11:07 Drug: Zofran 4 mg Route: IVP; Site: right antecubital; sg 12:39 Follow up: Response: No adverse reaction; Nausea is decreased sg 11:08 Drug: fentaNYL (PF) 50 mcg Route: IVP; Site: right antecubital; sg 12:38 Follow up: Response: No adverse reaction; Pain is decreased sg 12:27 Not Given (Other Intervention Used): Rocephin - (cefTRIAXone) 1 grams IVPB once over 30 sg mins; (mix in 50 mL NS) 12:30 Drug: Rocephin 1 grams Route: IV; Rate: calculated rate; Site: right antecubital; sg Outcome: 12:26 Decision to Hospitalize by Provider. jr8 12:30 Admitted to OR accompanied by nurse, accompanied by tech, family with patient, via sg stretcher, with chart, Report called to Bedside report to OR nurse 12:30 Condition: stable 12:30 Instructed on the need for admit, safety practices, Demonstrated understanding of instructions. 12:41 Patient left the ED. sg Signatures: Dispatcher [employer] EDCole Argueta RN RN sg Myers, Amanda, RN RN aj Smirch, Shelby, RN RN ss Roszak, Josh, PA PA jr8 Kristal Swanson 4
--- NOTE | 2018-03-12 12:27 | EDPHYS ---
Physician Documentation [facility] Name: Curtis Urrutia Age: 27 yrs Sex: Male : 1990 Arrival Date: 03/12/2018 Time: 10:11 Bed 5 Private MD: Matty Brewer H ED Physician Levi Hdez HPI: 03/12 12:22 This 27 yrs old Male presents to ER via Ambulatory with complaints of jr8 Abdominal Pain. 12:22 The patient presents with abdominal pain in the left lower quadrant. Onset: The jr8 symptoms/episode began/occurred acutely, today. The symptoms do not radiate. Associated signs and symptoms: Pertinent positives: nausea and vomiting. The symptoms are described as sharp. Modifying factors: The symptoms are alleviated by nothing, the symptoms are aggravated by nothing. Severity of pain: At its worst the pain was moderate in the emergency department the pain is unchanged. The patient has experienced a previous episode. The patient has not recently seen a physician. History of PKD. Stated that he has had rupture of cyst in past with similar pain. Started to have acute pain last night that has lasted through to today . Historical: - Allergies: 10:33 Sulfa (Sulfonamide Antibiotics); aj - Home Meds: 10:33 amlodipine oral [Active]; clonidine HCl Oral [Active]; lisinopril Oral [Active]; aj Tramadol Oral [Active]; - PMHx: 10:33 Hypertension; kidney disease; aj - PSHx: 10:33 None; aj - Immunization history:: Adult Immunizations up to date. - Social history:: Smoking status: Patient/guardian denies using tobacco. - Ebola Screening: : Patient negative for fever greater than or equal to 101.5 degrees Fahrenheit, and additional compatible Ebola Virus Disease symptoms Patient denies exposure to infectious person Patient denies travel to an Ebola-affected area in the 21 days before illness onset No symptoms or risks identified at this time. ROS: 12:22 Eyes: Negative for injury, pain, redness, and discharge, ENT: Negative for injury, jr8 pain, and discharge, Neck: Negative for injury, pain, and swelling, Cardiovascular: Negative for chest pain, palpitations, and edema, Respiratory: Negative for shortness of breath, cough, wheezing, and pleuritic chest pain, Back: Negative for injury and pain, MS/Extremity: Negative for injury and deformity, Skin: Negative for injury, rash, and discoloration, Neuro: Negative for headache, weakness, numbness, tingling, and seizure. 12:22 Abdomen/GI: Positive for abdominal pain, nausea and vomiting, Negative for diarrhea, abdominal cramps, abdominal distension, anorexia, dysphagia, hematemesis, black/tarry stool, rectal pain, rectal bleeding, bowel incontinence, flatulence. Exam: 12:22 Eyes: Pupils equal round and reactive to light, extra-ocular motions intact. Lids and jr8 lashes normal. Conjunctiva and sclera are non-icteric and not injected. Cornea within normal limits. Periorbital areas with no swelling, redness, or edema. ENT: Nares patent. No nasal discharge, no septal abnormalities noted. Tympanic membranes are normal and external auditory canals are clear. Oropharynx with no redness, swelling, or masses, exudates, or evidence of obstruction, uvula midline. Mucous membranes moist. Neck: Trachea midline, no thyromegaly or masses palpated, and no cervical lymphadenopathy. Supple, full range of motion without nuchal rigidity, or vertebral point tenderness. No Meningismus. Cardiovascular: Regular rate and rhythm with a normal S1 and S2. No gallops, murmurs, or rubs. Normal PMI, no JVD. No pulse deficits. Respiratory: Lungs have equal breath sounds bilaterally, clear to auscultation and percussion. No rales, rhonchi or wheezes noted. No increased work of breathing, no retractions or nasal flaring. Back: No spinal tenderness. No costovertebral tenderness. Full range of motion. Skin: Warm, dry with normal turgor. Normal color with no rashes, no lesions, and no evidence of cellulitis. MS/ Extremity: Pulses equal, no cyanosis. Neurovascular intact. Full, normal range of motion. Neuro: Awake and alert, GCS 15, oriented to person, place, time, and situation. Cranial nerves II-XII grossly intact. Motor strength 5/5 in all extremities. Sensory grossly intact. Cerebellar exam normal. Normal gait. 12:22 Abdomen/GI: Inspection: abdomen appears normal, Bowel sounds: active, all quadrants, Palpation: soft, in all quadrants, moderate abdominal tenderness, in the left lower quadrant, rebound tenderness, is not appreciated, voluntary guarding, is not appreciated, involuntary guarding, is not appreciated, no appreciated organomegaly, Indicators: McBurney's point is not tender, Aparicio's sign is negative, Rovsing's sign is negative, Liver: no appreciated palpable abnormalities, tenderness, is not appreciated. Vital Signs: 10:33 BP 158 / 100; Pulse 91; Resp 20; Temp 99.1; Pulse Ox 99% on R/A; Weight 95.25 kg; aj Height 5 ft. 9 in. (175.26 cm); 12:30 BP 142 / 82; Pulse 89; Resp 17; Temp 99.1; Pulse Ox 100% on R/A; Pain 4/10; sg 10:33 Body Mass Index 31.01 (95.25 kg, 175.26 cm) aj MDM: 10:36 Patient medically screened. jr8 12:22 Data reviewed: vital signs, nurses notes, lab test result(s), radiologic studies, CT jr8 scan. Data interpreted: Pulse oximetry: on room air is 99 %. Interpretation: normal. Counseling: I had a detailed discussion with the patient and/or guardian regarding: the historical points, exam findings, and any diagnostic results supporting the discharge/admit diagnosis, lab results, radiology results, the need for further work-up and treatment in the hospital. Physician consultation: Amanda Sevilla MD was called at 12:25, was contacted at 12:25, regarding admission, to the medical/surgical unit. consult, patient's condition, and will see patient. ED course: Dr. Whitman consulted and will see and stent patient . 03/12 10:56 Order name: Basic Metabolic Panel; Complete Time: 03/12 10:56 Order name: CBC with Diff; Complete Time: 03/12 10:56 Order name: Creatinine for Radiology; Complete Time: :03/12 10:56 Order name: Hepatic Function; Complete Time: 03/12 10:56 Order name: Lipase; Complete Time: 03/12 11:33 Order name: CT Abd/Pelvis - W/Contrast; Complete Time: 12:12 03/12 10:56 Order name: IV Saline Lock; Complete Time: 11:03/12 10:56 Order name: Labs collected and sent; Complete Time: 11:06 jr8 11 12:29 Order name: CONS Physician Consult EDMS Administered Medications: 11:07 Drug: Zofran 4 mg Route: IVP; Site: right antecubital; sg 12:39 Follow up: Response: No adverse reaction; Nausea is decreased sg 11:08 Drug: fentaNYL (PF) 50 mcg Route: IVP; Site: right antecubital; sg 12:38 Follow up: Response: No adverse reaction; Pain is decreased sg 12:27 Not Given (Other Intervention Used): Rocephin - (cefTRIAXone) 1 grams IVPB once over 30 sg mins; (mix in 50 mL NS) 12:30 Drug: Rocephin 1 grams Route: IV; Rate: calculated rate; Site: right antecubital; sg Disposition: 14:38 Co-signature as Attending Physician, Levi Hdez MD I agree with the assessment and aquiles plan of care. Disposition: 03/12/18 12:26 Hospitalization ordered by Amanda Sevilla for Observation. Preliminary diagnosis are Hydronephrosis with renal and ureteral calculous obstruction, Fever presenting with conditions classified elsewhere, Elevated white blood cell count. - Bed requested for Telemetry/MedSurg (observation). - Status is Observation. sg - Condition is Stable. - Problem is new. - Symptoms have improved. UTI on Admission? Yes Signatures: Dispatcher [employer] EDMS Cole Luis RN RN sg Myers, Amanda, RN RN aj Anderson, Corey, MD MD cha Roszak, Josh, PA PA jr8 Corrections: (The following items were deleted from the chart) 12:41 12:26 Hospitalization Ordered by Amanda Sevilla MD for Observation. Preliminary diagnosis sg is Hydronephrosis with renal and ureteral calculous obstruction; Fever presenting with conditions classified elsewhere; Elevated white blood cell count. Bed requested for Telemetry/MedSurg (observation). Status is Observation. Condition is Stable. Problem is new. Symptoms have improved. UTI on Admission? Yes. jr8
[2018-03-12] MEDS ORDERED: CEFTRIAXONE/SWI 1gm 1 GM/10 ML SYR ONE (12:43)
[2018-03-12] MEDS ORDERED: Ringers Lactate 1,000 ML IV ONE (12:52)
[2018-03-12] MEDS ORDERED: PROPOFOL 200 MG/20 ML VIAL IV ONE (13:39)
[2018-03-12] MEDS ORDERED: LIDOCAINE 2% MPF 5 ML VIAL ONE (13:40)
[2018-03-12] MEDS ORDERED: MIDAZOLAM HCL 2 MG/2 ML INJ ONE (13:40)
[2018-03-12] MEDS ORDERED: ONDANSETRON HCL 40 MG/20 ML VIAL ONE ×2 (13:41→14:13)
[2018-03-12] MEDS ORDERED: MORPHINE 2 MG/ML SYR IV PRN (14:25)
[2018-03-12] MEDS ORDERED: ACETAMINOPHEN 500 MG TAB PO PRN (14:25)
[2018-03-12 14:50] VITALS: BP 126/74; TEMP 99.2
[2018-03-12 15:33] VITALS: O2SAT 97; BMI 31.0
--- NOTE | 2018-03-12 18:07 | CON ---
History Of Present Illness: He is a gentleman who was in good state of health until 1:30 a.m., devel oped left lower quadrant abdominal pain, came to the emergency room where a CAT scan was done showing that the patient has polycystic kidney disease with innumerable variable-sized cysts throughout both kidneys. Left kidney was enlarged relative to the right. A few nonobstructing calculi seen on the left. No right hydronephrosis or stones on the right. There is minimal dilation of the left collect ing system with a 2-3 mm stone at the left UVJ, most likely the patient's source of fever. He had se veral left-sided renal cysts showing hyperdensity indicating high protein content or hemorrhagic mate rial. Because the patient has a low-grade fever, he is going to need a stent placed to avoid sepsis. Discussed all the general information, alternatives, and risks, and the patient wishes to proceed. Allergies: TO SULFA. Home Medication: Amlodipine, clonidine, lisinopril, and tramadol. Past Medical History: Hypertension, kidney disease. Past Surgical History: None. Immunizations: Up to date. Social History: Denies smoking. No Ebola exposure. Physical Examination: General Appearance: The patient appears in no acute distress, comfortable. Vital Signs: Temperature is 99.1, blood pressure 158/100, pulse 91, respirations 20, weight 95, heig ht 5 feet 9 inches. HEENT: Atraumatic, normocephalic. Chest: Clear. Heart: S1, S2. Abdomen: Soft, nontender. He is tender in the left flank region. : Deferred. Laboratory Data: Shows white count elevated to 12.2, H and H is 14 and 42, platelet count 297. Coag ulation studies, none. Chemistries; sodium 139, potassium 4.0, bicarb 31, chloride 104, carbon dioxi de 29, BUN 15, creatinine 1.3, GFR 67, glucose 113, magnesium 2.3, uric acid 1.0, calcium 9.3. Urine is okay. Assessment: Two to 3 mm stone, left ureterovesical junction with low-grade fever. Plan: For cysto and stent placement. All the general information and alternatives were given. The patient wishes to proceed. BISHOP/KAREN Voice ID: [id number] Report ID: [id number]
--- NOTE | 2018-03-12 18:33 | P.HP ---
Certification for Inpatient Patient admitted to: Observation With expected LOS: <2 Midnights Practitioner: I am a practitioner with admitting privileges, knowledge of patient current condition, hospital course, and medical plan of care. Services: Services provided to patient in accordance with Admission requirements found in Title 42 Section 412.3 of the Code of Federal Regulations Patient History Date of Service: 03/12/18 Primary Care Provider: Daniella Reason for admission: Flank pain, left side History of Present Illness: This is a 27-year-old male with policy is the kidney disease and hypertension admitted for left-sided flank pain. Per patient this started at 1:30 a.m. prior to admission. He developed a left lower quadrant abdominal pain came to the ER were this CT scan was positive for polycystic kidney disease with variable sized cysts bilaterally. Left kidney was enlarged compared to the right and a few noninflamed calculi were seen on the left. No hydronephrosis or stones. He is also complaining of low-grade fever. Denied any chills, diarrhea, constipation, chest pain, shortness of breath, or headaches at home. In the ER, he did have low-grade fever. He was alert oriented x3 with his pain better controlled with IV pain medications. Allergies Sulfa (Sulfonamide Antibiotics) Allergy (Verified 03/12/18 15:14) Itching/Hives/Rash Home Medications: Amlodipine Besylate 1 pill PO DAILY 08/05/17 Lisinopril 1 pill PO BID 08/05/17 cloNIDine [Clonidine] 1 patch XX EVERY 7TH DAY 08/05/17 Nitrofuran Macro [Macrobid] 100 mg PO BID #14 cap 03/12/18 - Past Medical/Surgical History Has patient received pneumonia vaccine in the past: No Diabetic: No -: polycystic kidney disease -: HTN - Family History Father Notes: No medical history Mother -: Other (see notes) Notes: Polycystic Kidney Disease - Social History Smoking Status: Never smoker Alcohol use: No CD- Drugs: No Caffeine use: No Place of Residence: Home Review of Systems General: Fever, As per HPI Eyes: Unremarkable ENT: Unremarkable Respiratory: Unremarkable Cardiovascular: Unremarkable Gastrointestinal: Abdominal Pain, As per HPI Genitourinary: As per HPI Musculoskeletal: Unremarkable Integumentary: Unremarkable Neurological: Unremarkable Lymphatics: Unremarkable Physical Examination - Vital Signs Temperature: 99.2 F Blood Pressure: 126/74 Pulse: 107 Respirations: 20 - Physical Exam General: Alert, Oriented x3, Mild distress HEENT: Atraumatic, PERRLA, Mucous membr. moist/pink, EOMI, Sclerae nonicteric Neck: Supple, 2+ carotid pulse no bruit, No LAD, Without JVD or thyroid abnormality Respiratory: Clear to auscultation bilaterally, Normal air movement Cardiovascular: Regular rate/rhythm, Normal S1 S2 Gastrointestinal: Normal bowel sounds, Other (Positive CVA tenderness on left side) Musculoskeletal: No tenderness Integumentary: No rashes Neurological: Normal gait, Normal speech, Normal strength at 5/5 x4 extr, Normal tone, Normal affect Lymphatics: No axilla or inguinal lymphadenopathy - Studies Laboratory Data (last 24 hrs) 03/12/18 10:50: Creatinine 1.30 03/12/18 10:50: WBC 12.2 H, Hgb 14.6, Hct 42.7, Plt Count 297 03/12/18 10:50: Sodium 139, Potassium 4.0, BUN 15, Creatinine 1.30, Glucose 113 H, Total Bilirubin 0.5, AST 22, ALT 51, Alkaline Phosphatase 70, Lipase 165 Assessment and Plan - Plan 3 mm the stone in left ureterovesical junction Dr. Whitman, urology consulted. Patient to undergo stent placement. Pain control any medications IV fluids Likely discharge after stent placement with outpatient follow up in 1-2 weeks for stent removal. - Advance Directives Does patient have a Living Will: No Does patient have a Durable POA for Healthcare: No
[2018-03-12 19:32] LABS: Urine Appearance CLEAR; Urine Bilirubin NEGATIVE (NEG); Urine Blood 3+ (NEG); Urine Color YELLOW; Urine Glucose NEGATIVE (NEG); Urine Protein TRACE (NEG); Urine Specific Gravity 1.025 (1.005-1.030); Urine Urobilinogen 0.2 mg/dL (0.2-1.0)
[2018-03-12 19:33] LABS: Urine Microscopic Reflex ORDER UMIC
[2018-03-12 20:55] LABS: Urine Bacteria <20 /HPF (NONE SEEN); Urine Culture Reflex Order NOT NEEDED; Urine RBC >50 /HPF (NONE SEEN)
--- NOTE | 2018-03-12 21:43 | OP ---
Surgeon: Jose Whitman MD Anesthesiologist: Dr. Lira. Preoperative Diagnosis: Left distal ureter stone with fever. Postoperative Diagnosis: Left distal ureter stone with fever. Procedures Performed: Cystoscopy and ureteral stone extraction with basket. No stent placed. Anesthesia: General. Estimated Blood Loss: Minimal. Replacement: See record. Path Specimen: Stones. Complication: None. Drains: None. Indication: A 27-year-old admitted with low-grade fevers and distal ureteral stone. It was deemed n ecessary to put a drain to treat all infection and go back later to be able to stone, possibly stent would help the stone to pass. He was given all the general information, alternatives, and risks. Description Of Procedure: The patient was properly identified, taken to the operative suite, and nurys ai in a supine lithotomy position. After general anesthesia was administered, the area was prepped and draped. Into the bladder with a 21-[place] scope and 30-degree lens, the penile and bulbar urethr a was clear. Prostatic urethra showed no obstruction. The bladder was scoped. No abnormalities wer e seen. The stone was seen at the left orifice. We were not able to get it with a stent gr asper. However, we placed a basket beside the stone and grasped the stone easily and brought it out. The ureter was open within the bladder to place a stent since he is not draining well. The patient went to recovery room in stable condition. He can follow up p.r.n. BISHOP/KAREN Voice ID: [id number] Report ID: [id number]
--- NOTE | 2018-03-13 10:52 | P.DS ---
Discharge Date: 03/13/18 Primary Care Provider: Daniella Disposition: ROUTINE DISCHARGE Discharge Condition: FAIR Reason for Admission: Flank pain, left side Consultations: Urology Brief History of Present Illness: This is a 27-year-old male with policy is the kidney disease and hypertension admitted for left-sided flank pain. Per patient this started at 1:30 a.m. prior to admission. He developed a left lower quadrant abdominal pain came to the ER were this CT scan was positive for polycystic kidney disease with variable sized cysts bilaterally. Left kidney was enlarged compared to the right and a few noninflamed calculi were seen on the left. No hydronephrosis or stones. He is also complaining of low-grade fever. Denied any chills, diarrhea, constipation, chest pain, shortness of breath, or headaches at home. In the ER, he did have low-grade fever. He was alert oriented x3 with his pain better controlled with IV pain medications. Hospital Course: Patient was treated with a cystoscopy with a J-stent placement. Clinically patient appears to be doing well and is stable for discharge home with outpatient follow with PCP and Urology Vital Signs/Physical Exam: Temp Pulse Resp BP Pulse Ox 99.2 F 107 H 20 126/74 97 03/12/18 18:35 03/12/18 18:35 03/12/18 18:35 03/12/18 18:35 03/12/18 16:00 General: Alert, In no apparent distress, Oriented x3 Laboratory Data at Discharge: WBC 12.2 K/uL (4.3-10.9) H 03/12/18 10:50 Hgb 14.6 g/dL (13.6-17.9) 03/12/18 10:50 Hct 42.7 % (39.6-49.0) 03/12/18 10:50 Plt Count 297 K/uL (152-406) 03/12/18 10:50 Sodium 139 mmol/L (136-145) 03/12/18 10:50 Potassium 4.0 mmol/L (3.5-5.1) 03/12/18 10:50 BUN 15 mg/dL (7-18) 03/12/18 10:50 Creatinine 1.30 mg/dL (0.55-1.3) 03/12/18 10:50 Glucose 113 mg/dL (74-106) H 03/12/18 10:50 Total Bilirubin 0.5 mg/dL (0.2-1.0) 03/12/18 10:50 AST 22 U/L (15-37) 03/12/18 10:50 ALT 51 U/L (12-78) 03/12/18 10:50 Alkaline Phosphatase 70 U/L (45-117) 03/12/18 10:50 Lipase 165 U/L (73-393) 03/12/18 10:50 Home Medications: Amlodipine Besylate 1 pill PO DAILY 08/05/17 Lisinopril 1 pill PO BID 08/05/17 cloNIDine [Clonidine] 1 patch XX EVERY 7TH DAY 08/05/17 Codeine/APAP [Tylenol W/Codeine #3 tab] 1 tab PO Q6HP PRN #20 tab 03/12/18 Nitrofuran Macro [Macrobid] 100 mg PO BID #14 cap 03/12/18 New Medications: Codeine/APAP [Tylenol W/Codeine #3 tab] 1 tab PO Q6HP PRN #20 tab PRN Reason: Pain Nitrofuran Macro [Macrobid] 100 mg PO BID #14 cap Patient Discharge Instructions: OK to DC home. Return to the ER if symptoms worsens. Follow-up with urology in 1-2 weeks. Pain meds called into pharmacy Diet: Regular Activity: Fall precautions Followup: Jose Whitman MD [ACTIVE - CAN ADMIT] - (Follow up as needed.) Time spent managing pt's care (in minutes): 20
== END 2018-03-12 21:00 | disposition home or self-care (01) ==
LOC: ER 10:08 → ERHOLD 12:41 → 2ND 13:29
PROVIDERS: ADMIT Family Medicine; ATTEND Family Medicine
PROC: 0TC78ZZ Extirpation of Matter from Left Ureter, Via Natural or Artificial Opening Endoscopic (ICD-10-PCS; principal; 2018-03-12 13:30)
DX: N20.1 Calculus of ureter (principal); R50.9 Fever, unspecified; Q61.3 Polycystic kidney, unspecified; I10 Essential (primary) hypertension; Z88.2 Allergy status to sulfonamides
CPT/HCPCS: 36415; 74177; 80048; 80076; 81003; 81015; 82360; 83690; 85025; 88300; 94760; 96374; 96375; 99285; G0378; J0696; J2250; J2405; J2704; J3010; Q9967